=== PATIENT | male | born 1980 | race Caucasian/White ===

== ENCOUNTER 2018-12-25 07:57 | Emergency (ER) | payer MEDICAID ==
[~2018-12-25] VITALS: Ht 167.6 cm; Wt 95.3 kg
[2018-12-25 08:12] VITALS: BP_SYST 121
--- NOTE | 2018-12-25 08:17 | NUR ---
Patient to ER bed 7 to gown for evaluation. Side rails up. Report given to ISAI Magdaleno.
--- NOTE | 2018-12-25 08:44 | NUR ---
Report given to ISAI Ramey.
--- NOTE | 2018-12-25 09:08 | NUR ---
ER at bedside examining patient.
--- NOTE | 2018-12-25 09:15 | NUR ---
pt arrives with c/o rib pain s/p fall 2 week ago. Condition is stable. No other c/o at the moment.
--- NOTE | 2018-12-25 09:20 | NUR ---
pt currently getting an x-ray of the ribs at the bedside.
--- NOTE | 2018-12-25 09:50 | NUR ---
pt is resting in bed no c/o at the moment.
[2018-12-25 10:05] VITALS: BP_SYST 121
--- NOTE | 2018-12-25 10:19 | NUR ---
Patient given written and verbal discharge instructions and verbalizes understanding. ER MD discussed with patient the results and treatment provided. Patient in stable condition. ID arm band removed. Rx of Tylenol with Codeine given. Patient educated on pain management and to follow up with PMD. Pain Scale 3/10.Opportunity for questions provided and answered. Medication side effect fact sheet provided.
== END 2018-12-25 10:05 | disposition home or self-care (01) ==
LOC: SED 07:57
DX: S20.211A Contusion of right front wall of thorax, initial encounter (principal); E78.00 Pure hypercholesterolemia, unspecified; F41.9 Anxiety disorder, unspecified; Z86.73 Personal history of transient ischemic attack (TIA), and cerebral infarction without residual deficits; X58.XXXA Exposure to other specified factors, initial encounter; Y93.89 Activity, other specified; Y92.89 Other specified places as the place of occurrence of the external cause; Y99.8 Other external cause status
CPT/HCPCS: 71100; 99283

== ENCOUNTER 2019-01-12 09:09 | Emergency (ER) | payer SELFPAY ==
[~2019-01-12] VITALS: Ht 165.1 cm; Wt 95.3 kg
[2019-01-12 09:09] VITALS: BP_SYST 113
--- NOTE | 2019-01-12 09:10 | NUR ---
BROUGHT BACK TO BED #8 AND TRIAGED, REPORT GIVEN TO SERENITY
--- NOTE | 2019-01-12 09:19 | NUR ---
Patient comes to ER via [employer], [employer], verbal and ambulatory. Patient comes with complain of pain to Left Great Toe, states that he hurt it moving furniture 2-3 days ago. Patient says he has been soaking foot in epsom salts but swelling and pain persisted and so he came to ER. Patient has normal sensation to LLE and can move all toes to left foot, LT dorsalis pedis pulse intact and strong. No other complaint or injury at this time.
--- NOTE | 2019-01-12 09:20 | NUR ---
Radiology at bedside for XRay of LT Foot
--- NOTE | 2019-01-12 09:30 | NUR ---
Dr Padron at bedside for ER evaluation
--- NOTE | 2019-01-12 09:55 | NUR ---
Patient given written and verbal discharge instructions and verbalizes understanding. ER MD discussed with patient the results and treatment provided. Patient in stable condition. ID arm band removed. NO Rx given. Patient educated on toe fracture, pain management and to follow up with PMD. Pain Scale 2/10. Opportunity for questions provided and answered.
== END 2019-01-12 09:55 | disposition home or self-care (01) ==
LOC: SED 09:09
DX: S92.425A Nondisplaced fracture of distal phalanx of left great toe, initial encounter for closed fracture (principal); E78.00 Pure hypercholesterolemia, unspecified; F41.9 Anxiety disorder, unspecified; Z86.73 Personal history of transient ischemic attack (TIA), and cerebral infarction without residual deficits; W22.8XXA Striking against or struck by other objects, initial encounter; Y93.89 Activity, other specified; Y92.89 Other specified places as the place of occurrence of the external cause; Y99.8 Other external cause status
CPT/HCPCS: 99283

== ENCOUNTER 2019-01-17 09:18 | Emergency (ER) | payer SELFPAY ==
[~2019-01-17] VITALS: Ht 165.1 cm; Wt 84.4 kg
[2019-01-17 09:24] VITALS: BP_SYST 142
[2019-01-17] MEDS ORDERED: DIPH-TET-PERTUS Vaccine 0.5 ML VIAL (ADACEL) I.M. ONE (11:30)
[2019-01-17] MEDS ORDERED: KETOROLAC TROMETHAMINE 30 MG VIAL IVP ONE (11:45)
[2019-01-17] MEDS ORDERED: VANCOMYCIN HCL 1,000 MG in NS 250 ML IV ONE (12:15)
[2019-01-17 12:17] LABS: BASOPHILS # (AUTO) 0.1 K/uL (0.0-0.2); BASOPHILS % (AUTO) 0.7 % (0.0-2.0); EOSINOPHILS # (AUTO) 0.2 K/uL (0.0-0.4); EOSINOPHILS % (AUTO) 1.8 % (0.0-4.0); HEMATOCRIT 40.6 % (36-54); HEMOGLOBIN 13.9 g/dL (14.0-18.0); LYMPHOCYTES # (AUTO) 1.8 K/uL (1.0-5.5); LYMPHOCYTES % (AUTO) 20.5 % (20.5-51.5); MEAN CORPUSCULAR HEMOGLOBIN 32 pg (27-31); MEAN CORPUSCULAR HGB CONC 34 % (32-36); MEAN CORPUSCULAR VOLUME 93 fL (79.0-98.0); MONOCYTES # (AUTO) 0.5 K/uL (0.0-1.0); MONOCYTES % (AUTO) 6.1 % (1.7-9.3); NEUTROPHILS # (AUTO) 6.3 K/uL (1.8-7.7); NEUTROPHILS % (AUTO) 70.9 % (40.0-70.0); PLATELET COUNT (AUTO) 334 K/uL (130-430); RED BLOOD CELL COUNT(AUTO) 4.36 MIL/uL (4.2-6.2); RED CELL DISTRIBUTION WIDTH 13.6 % (9.0-15.0); WHITE BLOOD COUNT (AUTO) 8.9 K/uL (4.8-10.8)
[2019-01-17 12:22] LABS: CALCIUM 8.5 mg/dL (8.4-11.0); CREATININE 0.86 mg/dL (0.55-1.30)
[2019-01-17 12:26] LABS: ALBUMIN 3.3 g/dL (3.4-4.8); PROTHROMBIN TIME 9.9 SECS (9.5-12.5); TOTAL BILIRUBIN 0.2 mg/dL (0.0-1.0)
[2019-01-17] MEDS ORDERED: VANCOMYCIN HCL 1000 MG/VIAL IV ONE (13:10)
[2019-01-17 15:21] VITALS: BP_SYST 132
== END 2019-01-17 15:21 | disposition home or self-care (01) ==
LOC: SED 09:18
DX: S92.425B Nondisplaced fracture of distal phalanx of left great toe, initial encounter for open fracture (principal); R03.0 Elevated blood-pressure reading, without diagnosis of hypertension; F41.9 Anxiety disorder, unspecified; E78.00 Pure hypercholesterolemia, unspecified; Z86.73 Personal history of transient ischemic attack (TIA), and cerebral infarction without residual deficits; W22.8XXD Striking against or struck by other objects, subsequent encounter
CPT/HCPCS: 36415; 73660; 80053; 83605; 85025; 85610; 85730; 87040; 90471; 90715; 96365; 96366; 96375; 99284; J1885; J3370